=== PATIENT | female | born 1980 | race Caucasian/White ===

== ENCOUNTER 2018-04-01 11:45 | Inpatient (IN) ==
[2018-04-01] MEDS ORDERED: ONDANSETRON 4 MG/2 ML VIAL IV PRN (14:21)
[2018-04-01] MEDS ORDERED: LACTULOSE 20 GM/30 ML UDCUP PO PRN (14:21)
[2018-04-01] MEDS ORDERED: ZALEPLON 5 MG CAPSULE PO PRN (14:21)
[2018-04-01] MEDS: POTASSIUM CHLORIDE 20 MEQ TABLET PO SCH ×3 (14:55→23:18)
[2018-04-01] MEDS: SODIUM CHLORIDE 0.9% 1,000 ML IV SCH ×2 (14:55→21:15)
[2018-04-01] MEDS: NICOTINE 21 MG/24 HR PATCH TRANSDERM PRN (14:56)
[2018-04-01] MEDS ORDERED: cefTRIAXone 1,000 MG in SYRINGE 1 EACH IV SCH (15:00)
[2018-04-01] MEDS: ACETAMINOPHEN 325 MG TABLET PO PRN (17:32)
[2018-04-01] MEDS: METHOCARBAMOL 750 MG TABLET PO SCH (20:14)
[2018-04-01] MEDS: FAMOTIDINE 20 MG TABLET PO SCH (20:14)
[2018-04-01] MEDS: GABAPENTIN 600 MG TABLET PO SCH (20:47)
[2018-04-01] MEDS ORDERED: ENOXAPARIN 30 MG/0.3 ML SYRINGE SUBCUT SCH (21:00)
[2018-04-02] MEDS: ACETAMINOPHEN 325 MG TABLET PO PRN ×5 (00:08→22:24)
[2018-04-02] MEDS: POTASSIUM CHLORIDE 20 MEQ TABLET PO SCH ×5 (03:40→20:31)
[2018-04-02 03:41] LABS: Basophils % 0.1 % (0.0-0.8); Eosinophils % 0.3 % (0.00-10.9); Hematocrit 32.5 VOL% (35.7-47.0); Hemoglobin 11.6 GM/DL (12.0-16.0); Immature Granulocytes % 1.8 %; Immature Granulocytes Absolute 0.18 #; Lymphocytes # 0.9 10*3/uL (1.4-4.0); Mean Corpuscular HGB Conc 35.7 GM/DL (32-36); Mean Corpuscular Hemoglobin 33 PG (27-34); Mean Corpuscular Volume 92.3 FL (87-102); Mean Platelet Volume 10.7 FL (9.6-12.0); Monocytes # 0.6 10*3/uL (0.11-0.8); Monocytes % 6.3 % (1.7-12.7); Neutrophils # 8.1 10*3/uL (1.4-7.4); Neutrophils % 82.5 % (38.7-73.9); Platelet Count 220 T/CUMM (130-400); Red Blood Count 3.52 MC/CUMM (3.8-5.5); Red Cell Distribution Width 13.2 % (9.3-17.3); White Blood Count 9.9 T/CUMM (4-12)
[2018-04-02 04:05] LABS: Albumin 2.3 G/DL (3.4-5.0); Osmolality,Calculated 281.5 MOS/KG (273-304); Potassium 3.3 MMOL/L (3.5-5.1); Total Protein 5.7 G/DL (6.4-8.3)
[2018-04-02 04:42] LABS: Platelet Estimate Adequate
[2018-04-02] MEDS ORDERED: MORPHINE SULFATE PO PRN (09:00)
[2018-04-02] MEDS ORDERED: NALTREXONE PO PRN (09:00)
[2018-04-02] MEDS: cefTRIAXone 1,000 MG in SYRINGE 1 EACH IV SCH (09:26)
[2018-04-02] MEDS: POTASSIUM CHLORIDE INJ 20 MEQ in LACTATED RINGERS 1,000 ML IV SCH ×2 (09:26→18:29)
[2018-04-02] MEDS: METHOCARBAMOL 750 MG TABLET PO SCH ×2 (09:27→20:32)
[2018-04-02] MEDS: NICOTINE 21 MG/24 HR PATCH TRANSDERM PRN (14:45)
[2018-04-02] MEDS: GABAPENTIN 600 MG TABLET PO SCH (20:30)
[2018-04-02] MEDS: FAMOTIDINE 20 MG TABLET PO SCH (20:31)
[2018-04-02] MEDS: ENOXAPARIN 40 MG/0.4 ML SYRINGE SUBCUT SCH (20:32)
[2018-04-02] MEDS ORDERED: LOPERAMIDE 2 MG CAPSULE PO ONE (23:08)
[2018-04-03] MEDS: POTASSIUM CHLORIDE INJ 20 MEQ in LACTATED RINGERS 1,000 ML IV SCH (02:35)
[2018-04-03 03:34] LABS: Osmolality,Calculated 271.8 MOS/KG (273-304); Potassium 5.6 MMOL/L (3.5-5.1)
[2018-04-03] MEDS: ACETAMINOPHEN 325 MG TABLET PO PRN ×3 (05:40→20:51)
[2018-04-03] MEDS ORDERED: LOPERAMIDE 2 MG CAPSULE PO ONE (06:30)
[2018-04-03] MEDS: METHOCARBAMOL 750 MG TABLET PO SCH ×2 (09:21→20:51)
[2018-04-03] MEDS: cefTRIAXone 1,000 MG in SYRINGE 1 EACH IV SCH (09:21)
[2018-04-03] MEDS: SODIUM CHLORIDE 0.45% 1,000 ML IV SCH ×2 (10:46→21:02)
[2018-04-03] MEDS: MEROPENEM 1,000 MG in SODIUM CHLORIDE 0.9% 100 ML IV SCH (17:39)
[2018-04-03] MEDS: NICOTINE 21 MG/24 HR PATCH TRANSDERM PRN (17:52)
[2018-04-03] MEDS: ENOXAPARIN 40 MG/0.4 ML SYRINGE SUBCUT SCH ×2 (20:50→20:55)
[2018-04-03] MEDS: FAMOTIDINE 20 MG TABLET PO SCH (20:51)
[2018-04-03] MEDS: ASCORBIC ACID 500 MG TABLET PO SCH (20:51)
[2018-04-03] MEDS: GABAPENTIN 600 MG TABLET PO SCH (20:51)
[2018-04-03] MEDS: LACTOBACILLUS ACIDOPHILUS/BULGARICUS CAPLET PO SCH (20:51)
[2018-04-03 21:14] LABS: Apearance,Urine CLEAR (Clear); Bacteria,Urine Occasional /HPF (Few); Bilirubin,Urine Negative (Negative); Blood, Urine Small mg/dL (Negative); Glucose,Urine (UA) Negative (Negative); Ketones,Urine Negative (Negative); Nitrite,Urine Negative (Negative); Protein,Urine Negative; RBC,Urine 1 /HPF (0-4); Squamous Epithelial Cell,Urine Occasional /HPF (0-10); Urine Color Straw (Yellow); Urine Specific Gravity 1.009 (1.001-1.035); Urine Urobilinogen < 2.0 EU/DL (0.2-1.0); WBC,Urine 2 /HPF (0-6)
[2018-04-04] MEDS: MEROPENEM 1,000 MG in SODIUM CHLORIDE 0.9% 100 ML IV SCH ×3 (01:55→17:43)
[2018-04-04] MEDS: SODIUM CHLORIDE 0.45% 1,000 ML IV SCH ×2 (03:49→14:28)
[2018-04-04] MEDS: ACETAMINOPHEN 325 MG TABLET PO PRN ×3 (03:49→21:14)
[2018-04-04 03:53] LABS: Eosinophils % 0.5 % (0.00-10.9); Hematocrit 33.9 VOL% (35.7-47.0); Hemoglobin 11.5 GM/DL (12.0-16.0); Immature Granulocytes % 3.4 %; Immature Granulocytes Absolute 0.14 #; Lymphocytes # 1.1 10*3/uL (1.4-4.0); Lymphocytes % 25.9 % (21.3-54.2); Mean Corpuscular HGB Conc 33.9 GM/DL (32-36); Mean Corpuscular Hemoglobin 32 PG (27-34); Monocytes # 0.4 10*3/uL (0.11-0.8); Monocytes % 9.7 % (1.7-12.7); Neutrophils # 2.5 10*3/uL (1.4-7.4); Neutrophils % 60.5 % (38.7-73.9); Platelet Count 243 T/CUMM (130-400); Red Blood Count 3.57 MC/CUMM (3.8-5.5); Red Cell Distribution Width 13.8 % (9.3-17.3); White Blood Count 4.1 T/CUMM (4-12)
[2018-04-04 04:10] LABS: Calcium 8.7 MG/DL (8.5-10.1); Osmolality,Calculated 274.5 MOS/KG (273-304)
[2018-04-04 04:17] LABS: Ferritin 425.9 ng/ml (8-252)
[2018-04-04 04:26] LABS: Folate 9.5 NG/ML (5.4-24.0); Vitamin B12 1113 PG/ML (211-911)
[2018-04-04 05:55] LABS: Sedimentation Rate-Westergren 100 MM/HR (0-20)
[2018-04-04 09:24] LABS: Hemoglobin A1 (Alkaline) 97.7 % (96.5-98.5); Hemoglobin A2 (Alkaline) 2.3 % (1.5-3.5)
[2018-04-04] MEDS: LACTOBACILLUS ACIDOPHILUS/BULGARICUS CAPLET PO SCH ×2 (09:48→20:54)
[2018-04-04] MEDS: METHOCARBAMOL 750 MG TABLET PO SCH ×2 (09:48→20:55)
[2018-04-04] MEDS: ASCORBIC ACID 500 MG TABLET PO SCH ×2 (09:49→20:55)
[2018-04-04] MEDS: CHOLECALCIFEROL 1,000 UNIT TABLET PO SCH (09:49)
[2018-04-04] MEDS: GABAPENTIN 600 MG TABLET PO SCH ×4 (10:09→20:55)
[2018-04-04] MEDS: NICOTINE 21 MG/24 HR PATCH TRANSDERM PRN (17:45)
[2018-04-04] MEDS: ENOXAPARIN 40 MG/0.4 ML SYRINGE SUBCUT SCH (20:55)
[2018-04-04] MEDS: FAMOTIDINE 20 MG TABLET PO SCH (20:55)
[2018-04-05] MEDS: SODIUM CHLORIDE 0.45% 1,000 ML IV SCH ×2 (01:15→18:01)
[2018-04-05] MEDS: ACETAMINOPHEN 325 MG TABLET PO PRN ×5 (01:15→22:38)
[2018-04-05] MEDS: MEROPENEM 1,000 MG in SODIUM CHLORIDE 0.9% 100 ML IV SCH ×3 (01:35→17:06)
[2018-04-05 02:54] LABS: Basophils % 0.2 % (0.0-0.8); Eosinophils # 0.1 10*3/uL (0.0-0.87); Eosinophils % 1.3 % (0.00-10.9); Hematocrit 25.4 VOL% (35.7-47.0); Hemoglobin 8.7 GM/DL (12.0-16.0); Immature Granulocytes Absolute 0.14 #; Lymphocytes # 1.6 10*3/uL (1.4-4.0); Lymphocytes % 33.7 % (21.3-54.2); Mean Corpuscular HGB Conc 34.3 GM/DL (32-36); Mean Corpuscular Hemoglobin 33 PG (27-34); Mean Corpuscular Volume 95.8 FL (87-102); Mean Platelet Volume 9.9 FL (9.6-12.0); Monocytes # 0.7 10*3/uL (0.11-0.8); Monocytes % 16.1 % (1.7-12.7); Neutrophils # 2.1 10*3/uL (1.4-7.4); Neutrophils % 45.7 % (38.7-73.9); Platelet Count 220 T/CUMM (130-400); Red Blood Count 2.65 MC/CUMM (3.8-5.5); Red Cell Distribution Width 14.2 % (9.3-17.3); White Blood Count 4.6 T/CUMM (4-12)
[2018-04-05 03:07] LABS: Calcium 7.1 MG/DL (8.5-10.1); Osmolality,Calculated 258.7 MOS/KG (273-304); Potassium 2.9 MMOL/L (3.5-5.1)
[2018-04-05 03:31] LABS: Eosinophils 2 % (0-10); Lymphocytes 44 % (20-55); Metamyelocytes 1 %; Platelet Estimate Normal; Segmented Neutrophils 41 % (50-85); Total Cells Counted 100
[2018-04-05] MEDS ORDERED: MAGNESIUM SULF RIDER 2 GM in PREMIX 1 EACH IV PRN (07:35)
[2018-04-05] MEDS ORDERED: MAGNESIUM SULF RIDER 4 GM in PREMIX 1 EACH IV PRN (07:35)
[2018-04-05] MEDS: CHOLECALCIFEROL 1,000 UNIT TABLET PO SCH (09:33)
[2018-04-05] MEDS: LACTOBACILLUS ACIDOPHILUS/BULGARICUS CAPLET PO SCH ×2 (09:33→22:02)
[2018-04-05] MEDS: ASCORBIC ACID 500 MG TABLET PO SCH ×2 (09:33→22:02)
[2018-04-05] MEDS: GABAPENTIN 600 MG TABLET PO SCH ×4 (09:33→22:02)
[2018-04-05] MEDS: METHOCARBAMOL 750 MG TABLET PO SCH ×2 (13:47→22:03)
[2018-04-05] MEDS: POTASSIUM CHLORIDE RIDER 10 MEQ in PREMIX 1 EACH IV PRN ×5 (18:07→22:03)
[2018-04-05] MEDS: NICOTINE 21 MG/24 HR PATCH TRANSDERM PRN (20:53)
[2018-04-05] MEDS: FAMOTIDINE 20 MG TABLET PO SCH (22:02)
[2018-04-05] MEDS: ENOXAPARIN 40 MG/0.4 ML SYRINGE SUBCUT SCH (22:03)
[2018-04-06] MEDS: MEROPENEM 1,000 MG in SODIUM CHLORIDE 0.9% 100 ML IV SCH ×3 (01:11→16:56)
[2018-04-06 04:56] LABS: Basophils % 0.5 % (0.0-0.8); Eosinophils # 0.1 10*3/uL (0.0-0.87); Eosinophils % 1.7 % (0.00-10.9); Hematocrit 33.7 VOL% (35.7-47.0); Hemoglobin 11.2 GM/DL (12.0-16.0); Immature Granulocytes % 2.1 %; Immature Granulocytes Absolute 0.13 #; Lymphocytes # 2.8 10*3/uL (1.4-4.0); Lymphocytes % 43.7 % (21.3-54.2); Mean Corpuscular HGB Conc 33.2 GM/DL (32-36); Mean Corpuscular Hemoglobin 32 PG (27-34); Mean Corpuscular Volume 97.1 FL (87-102); Mean Platelet Volume 9.6 FL (9.6-12.0); Monocytes # 0.6 10*3/uL (0.11-0.8); Monocytes % 10.1 % (1.7-12.7); Neutrophils # 2.7 10*3/uL (1.4-7.4); Neutrophils % 41.9 % (38.7-73.9); Platelet Count 328 T/CUMM (130-400); Red Blood Count 3.47 MC/CUMM (3.8-5.5); Red Cell Distribution Width 14.1 % (9.3-17.3); White Blood Count 6.3 T/CUMM (4-12)
[2018-04-06 05:18] LABS: Calcium 8.6 MG/DL (8.5-10.1); Osmolality,Calculated 279.3 MOS/KG (273-304); Potassium 4.1 MMOL/L (3.5-5.1)
[2018-04-06] MEDS: ACETAMINOPHEN 325 MG TABLET PO PRN ×5 (05:23→22:17)
[2018-04-06 05:25] LABS: Macrocytosis Slight
[2018-04-06] MEDS: SODIUM CHLORIDE 0.45% 1,000 ML IV SCH ×2 (08:11→20:54)
[2018-04-06] MEDS: LACTOBACILLUS ACIDOPHILUS/BULGARICUS CAPLET PO SCH ×2 (09:37→20:54)
[2018-04-06] MEDS: CHOLECALCIFEROL 1,000 UNIT TABLET PO SCH (09:38)
[2018-04-06] MEDS: ASCORBIC ACID 500 MG TABLET PO SCH ×2 (09:39→20:54)
[2018-04-06] MEDS: GABAPENTIN 600 MG TABLET PO SCH ×4 (09:43→20:53)
[2018-04-06] MEDS: METHOCARBAMOL 750 MG TABLET PO SCH ×2 (10:09→20:54)
[2018-04-06] MEDS: NICOTINE 21 MG/24 HR PATCH TRANSDERM PRN (20:52)
[2018-04-06] MEDS: FAMOTIDINE 20 MG TABLET PO SCH (20:53)
[2018-04-06] MEDS: ENOXAPARIN 40 MG/0.4 ML SYRINGE SUBCUT SCH (20:55)
[2018-04-07] MEDS: MEROPENEM 1,000 MG in SODIUM CHLORIDE 0.9% 100 ML IV SCH ×2 (02:22→08:32)
[2018-04-07] MEDS: ACETAMINOPHEN 325 MG TABLET PO PRN ×2 (02:23→06:17)
[2018-04-07 05:57] LABS: Basophils % 0.4 % (0.0-0.8); Eosinophils # 0.2 10*3/uL (0.0-0.87); Eosinophils % 2.2 % (0.00-10.9); Hematocrit 36.6 VOL% (35.7-47.0); Hemoglobin 11.8 GM/DL (12.0-16.0); Immature Granulocytes % 1.8 %; Immature Granulocytes Absolute 0.15 #; Lymphocytes # 3.9 10*3/uL (1.4-4.0); Lymphocytes % 46.9 % (21.3-54.2); Mean Corpuscular HGB Conc 32.2 GM/DL (32-36); Mean Corpuscular Hemoglobin 32 PG (27-34); Mean Corpuscular Volume 98.4 FL (87-102); Mean Platelet Volume 9.4 FL (9.6-12.0); Monocytes # 0.4 10*3/uL (0.11-0.8); Monocytes % 4.7 % (1.7-12.7); Neutrophils # 3.7 10*3/uL (1.4-7.4); Platelet Count 428 T/CUMM (130-400); Red Blood Count 3.72 MC/CUMM (3.8-5.5); Red Cell Distribution Width 14.2 % (9.3-17.3); White Blood Count 8.3 T/CUMM (4-12)
[2018-04-07] MEDS: SODIUM CHLORIDE 0.45% 1,000 ML IV SCH (06:21)
[2018-04-07 06:29] LABS: Osmolality,Calculated 277.3 MOS/KG (273-304); Potassium 3.9 MMOL/L (3.5-5.1)
[2018-04-07 06:32] LABS: Band Neutrophils 1 % (0-10); Eosinophils 5 % (0-10); Lymphocytes 49 % (20-55); Segmented Neutrophils 42 % (50-85); Total Cells Counted 100
[2018-04-07 06:35] LABS: Platelet Estimate Increased
[2018-04-07 07:30] VITALS: BP 132/79
[2018-04-07] MEDS: CHOLECALCIFEROL 1,000 UNIT TABLET PO SCH (08:27)
[2018-04-07] MEDS: GABAPENTIN 600 MG TABLET PO SCH (08:27)
[2018-04-07] MEDS: METHOCARBAMOL 750 MG TABLET PO SCH (08:28)
[2018-04-07] MEDS: LACTOBACILLUS ACIDOPHILUS/BULGARICUS CAPLET PO SCH (08:28)
[2018-04-07] MEDS: ASCORBIC ACID 500 MG TABLET PO SCH (08:28)
[2018-04-07] MEDS ORDERED: ATENOLOL/CHLORTHALIDONE 50-25 MG TABLET PO SCH (09:00)
[2018-04-07] MEDS ORDERED: FERROUS SULFATE 325 MG TABLET PO SCH (09:00)
== END 2018-04-07 11:29 | disposition home or self-care (01) | DRG 469 ==
LOC: N.ICU 13:22 → SUATTDRO 13:22 → N.2E 04-02 11:25
PROVIDERS: ADMIT Internal Medicine; ATTEND Hospitalist